=== PATIENT | male | born 1950 | race Caucasian/White ===

== ENCOUNTER 2021-05-12 16:35 | Inpatient (IN) | payer OTHER ==
[~2021-05-12] VITALS: Ht 175.3 cm; Wt 90.7 kg
[2021-05-12 17:58] LABS: Source, Urine Clean Catch
[2021-05-12 17:59] LABS: BASOPHILS ABSOLUTE AUTO 0.06 K/mm3 (0.00-0.23); BASOPHILS PERCENT AUTO 0 % (0-2); EOSINOPHILS ABSOLUTE AUTO 0.06 K/mm3 (0.00-0.68); EOSINOPHILS PERCENT AUTO 0 % (0-6); Hematocrit 38.2 % (37.0-53.0); Hemoglobin 13.9 g/dL (13.5-17.5); IMMATURE GRAN ABSOLUTE AUTO 0.05 K/mm3 (0.00-0.10); IMMATURE GRAN PERCENT AUTO 0 % (0-1); LYMPHOCYTES ABSOLUTE AUTO 1.14 K/mm3 (0.84-5.20); LYMPHOCYTES PERCENT AUTO 8 % (21-46); MONOCYTES ABSOLUTE AUTO 0.75 K/mm3 (0.16-1.47); MONOCYTES PERCENT AUTO 5 % (4-13); Mean Corpuscular HGB 31.6 pg (26.0-34.0); Mean Corpuscular HGB Conc 36.4 g/dL (31.5-36.5); Mean Corpuscular Volume 87 fL (80-100); Mean Platelet Volume 8.6 fL (9.1-12.4); NEUTROPHILS ABSOLUTE AUTO 12.56 K/mm3 (1.96-9.15); NEUTROPHILS PERCENT AUTO 86 % (41-73); Platelet Count 336 K/mm3 (150-400); RDW Coefficient Variation 12.5 % (11.7-14.2); RDW Standard Deviation 39.9 fL (35.1-46.3); White Blood Cell Count 14.62 K/mm3 (4.00-11.30)
[2021-05-12 17:59] LABS: Appearance, Urine Clear (Clear); Bilirubin, Urine Neg (Neg); Blood, Urine 4+ (Neg); Color, Urine Yellow (P-Yellow); Glucose Qualitative, Urine Neg (Neg); Ketones, Urine 1+ (Neg); Leukocyte Esterase, Urine Neg (Neg); Nitrite, Urine Neg (Neg); Protein, Urine 2+ (Neg); Urobilinogen, Urine NORM (Normal)
[2021-05-12 18:12] LABS: Bacteria Few /hpf; Hyaline Casts 0-2 /lpf (0-2); Squamous Epithelial Cells Rare /hpf (Few)
[2021-05-12 18:15] LABS: U Amphetamine Screen Not Detected; U Barbituate Screen Not Detected; U Benzodiazapine Screen Not Detected; U Buprenorphine Screen Not Detected; U Cannabinoids Screen DETECTED; U Cocaine Screen Not Detected; U Methadone Screen Not Detected; U Methamphetamine Screen Not Detected; U Opiates Screen Not Detected; U Oxycodone Screen Not Detected; U Phencyclidine Screen Not Detected; U Propoxyphene Screen Not Detected
[2021-05-12 18:33] LABS: Ethanol (Alcohol), Blood, Med <3 mg/dL; Free Thyroxine 0.95 ng/dL (0.70-1.60); Salicylate 4.1 mg/dL (2.8-20.0)
[2021-05-12 18:46] LABS: Alanine Aminotransfer (ALT/SGP 33 U/L (12-78); Albumin, Blood 3.8 g/dL (3.4-5.0); Alk Phos 128 U/L (50-136); Anion Gap 9 mmol/L (6-16); Aspartate Aminotrans (AST/SGOT 35 U/L (12-37); Bilirubin, Total 0.6 mg/dL (0.1-1.0); Blood Urea Nitrogen 6 mg/dL (8-24); CO2, Blood 25 mmol/L (21-32); Calcium, Blood 8.8 mg/dL (8.5-10.1); Chloride, Blood 85 mmol/L (98-108); Creatinine, Blood 0.67 mg/dL (0.60-1.20); Globulin, Blood 3.8 g/dL (2.2-4.0); Glomerular Filtration Rate >60 (60-); Glucose, Blood 106 mg/dL (70-99); Potassium, Blood 4.5 mmol/L (3.5-5.5); Sodium, Blood 119 mmol/L (136-145); Total Protein, Blood 7.6 g/dL (6.4-8.2)
[2021-05-12 18:48] LABS: Acetaminophen, Random <2.0 ug/mL (10.0-30.0)
[2021-05-12] MEDS ORDERED: DULO30 PO (20:50)
[2021-05-12] MEDS ORDERED: CATAPRES0.1 MG PO (20:50)
[2021-05-12] MEDS ORDERED: TRAZ100 PO (20:51)
--- NOTE | 2021-05-13 00:07 | NUR ---
PATIENT IS A NEW ADMIT FROM THE ED. ARRIVED VIA W/C AND SBA TRANSFER TO BED. AXOX 3 ON ROOM AIR. DENIES CHEST PAIN, SOB, AND N/V. DENIES SUICIDAL IDEATION. REPORTS LAST DRINK OF BEER THIS AM AT 11:30. REPORTS DRINKS 16 X 16 OZ BUDWEISER DAILY X A FEW MONTHS. ANXIOUS ON ADMIT. SEIZURE PADS IN PLACE WITH HX OF ETOH SEIZURES. REPORTS DAILY CANNABIS USE, A JOINT/DAY. PATIENT ORIENTED TO ROOM AND CALL LIGHT SYSTEM. REPORTS LIVES WITH SON IN [place].
--- NOTE | 2021-05-13 00:15 | NUR ---
TELEMETRY PLACES AND TECH REPORTS NSR 79. NS STARTED INFUSING AT 125 mL/HR. CALL LIGHT IN REACH. URINAL AT BEDSIDE.
[2021-05-13 01:06] LABS: Anion Gap 6 mmol/L (6-16); Blood Urea Nitrogen 9 mg/dL (8-24); Bun/Creatinine Ratio 12.1 (12.0-20.0); CO2, Blood 29 mmol/L (21-32); Calcium, Blood 8.7 mg/dL (8.5-10.1); Chloride, Blood 90 mmol/L (98-108); Creatinine, Blood 0.74 mg/dL (0.60-1.20); Glomerular Filtration Rate >60 (60-); Glucose, Blood 99 mg/dL (70-99); Potassium, Blood 4.5 mmol/L (3.5-5.5); Sodium, Blood 125 mmol/L (136-145)
--- NOTE | 2021-05-13 01:44 | NUR ---
BANANA BAG INFUSING @ 125mL/HR. NS BAG HELD WHILE BANANA BAG INFUSING PER ORDER.
--- NOTE | 2021-05-13 03:40 | NUR ---
SHIFT SUMMARY PATIENT HAD NO ACUTE CHANGES OBSERVED. AXOX 3 AND INDEPENDENT IN ROOM. DENIES SUICIDAL IDEATION. DENIES CHEST PAIN, SOB, AND N/V. CIWA 4-5. PIV REMAINS INTACT. BANANA BAG INFUSING AT 125 mL/HR FOLLOWED BY NS @ 125mL/HR. CAFETERIA SUPERVISOR REPORTS NSR 79. VSS/AFEBRILE. SEIZURE PRECAUTIONS IN PLACE. ANXIOUS ON ADMIT WITH MILD HAND TREMORS AND PAROXYSMAL SWEATS. NO HALLUCINATIONS NOTED. ABLE TO SLEEP AFTER ADMIT. SODIUM IMPROVING FROM 119 TO 125. CALL LIGHT IN REACH. BED IN LOWEST POSITION. WILL CONTINUE TO MONITOR UNTIL DAY SHIFT NURSE ASSUMES CARE.
[2021-05-13 04:45] LABS: BASOPHILS ABSOLUTE AUTO 0.06 K/mm3 (0.00-0.23); BASOPHILS PERCENT AUTO 1 % (0-2); EOSINOPHILS ABSOLUTE AUTO 0.29 K/mm3 (0.00-0.68); EOSINOPHILS PERCENT AUTO 3 % (0-6); Hematocrit 36.3 % (37.0-53.0); IMMATURE GRAN ABSOLUTE AUTO 0.04 K/mm3 (0.00-0.10); IMMATURE GRAN PERCENT AUTO 0 % (0-1); LYMPHOCYTES ABSOLUTE AUTO 2.22 K/mm3 (0.84-5.20); LYMPHOCYTES PERCENT AUTO 19 % (21-46); MONOCYTES ABSOLUTE AUTO 0.97 K/mm3 (0.16-1.47); MONOCYTES PERCENT AUTO 8 % (4-13); Mean Corpuscular HGB 31.6 pg (26.0-34.0); Mean Corpuscular HGB Conc 35.8 g/dL (31.5-36.5); Mean Corpuscular Volume 88 fL (80-100); NEUTROPHILS ABSOLUTE AUTO 8.25 K/mm3 (1.96-9.15); NEUTROPHILS PERCENT AUTO 70 % (41-73); Platelet Count 320 K/mm3 (150-400); RDW Coefficient Variation 12.9 % (11.7-14.2); Red Blood Cell Count 4.11 M/mm3 (4.30-5.90); White Blood Cell Count 11.83 K/mm3 (4.00-11.30)
[2021-05-13 11:47] LABS: Anion Gap 6 mmol/L (6-16); Blood Urea Nitrogen 10 mg/dL (8-24); Bun/Creatinine Ratio 13.3 (12.0-20.0); CO2, Blood 26 mmol/L (21-32); Calcium, Blood 8.6 mg/dL (8.5-10.1); Chloride, Blood 94 mmol/L (98-108); Creatinine, Blood 0.75 mg/dL (0.60-1.20); Glomerular Filtration Rate >60 (60-); Glucose, Blood 124 mg/dL (70-99); Sodium, Blood 126 mmol/L (136-145)
--- NOTE | 2021-05-13 17:30 | NUR ---
PT AOX4 AND COOPERATIVE OF CARE. PT HAS BEEN DETOXING AND NEEDED TREATED PER EMAR X2. PT CAN CALL APPROPRIATELY, BUT SET BED ALARM OFF ONCE TODAY. PT IS MAINTAINING AT THIS TIME. DENIES PAIN, CALL LIGHT WITHIN REACH WILL CONTINUE TO MONITOR.
[2021-05-13 18:45] LABS: Anion Gap 5 mmol/L (6-16); Blood Urea Nitrogen 13 mg/dL (8-24); Bun/Creatinine Ratio 14.2 (12.0-20.0); CO2, Blood 26 mmol/L (21-32); Chloride, Blood 94 mmol/L (98-108); Creatinine, Blood 0.92 mg/dL (0.60-1.20); Glomerular Filtration Rate >60 (60-); Glucose, Blood 107 mg/dL (70-99); Potassium, Blood 4.1 mmol/L (3.5-5.5); Sodium, Blood 125 mmol/L (136-145)
--- NOTE | 2021-05-14 00:33 | NUR ---
PATIENT HAVING INCREASED AGITATION WITH ETOH WITHDRAWALS. IV ATIVAN 2MG GIVEN FOR CIWA SCORE OF 8. PATIENT BACK IN BED. CALL LIGHT IN REACH.
[2021-05-14 03:09] LABS: Anion Gap 7 mmol/L (6-16); Blood Urea Nitrogen 14 mg/dL (8-24); Bun/Creatinine Ratio 14.7 (12.0-20.0); CO2, Blood 25 mmol/L (21-32); Calcium, Blood 8.6 mg/dL (8.5-10.1); Chloride, Blood 97 mmol/L (98-108); Creatinine, Blood 0.95 mg/dL (0.60-1.20); Glomerular Filtration Rate >60 (60-); Glucose, Blood 102 mg/dL (70-99); Potassium, Blood 3.8 mmol/L (3.5-5.5); Sodium, Blood 129 mmol/L (136-145)
--- NOTE | 2021-05-14 03:32 | NUR ---
SHIFT SUMMARY PATIENT HAVING INCREASED AGITATION WITH ALCOHOL WITHDRAWALS. CIWA 8. PATIENT PULLING OFF GOWN AND TELEMETRY LEADS. YELLING AND SCREAMING AT TIMES SPILLING HIS URINAL MULTIPLE TIMES. IV ATIVAN 2 MG GIVEN PER EMAR WITH GOOD AFFECT. PIV REMAINS INTACT. NS INFUSING AT 75 mL/HR. VSS/AFEBRILE. DENIES PAIN, SOB, AND N/V. CALL LIGHT IN REACH. BED IN LOWEST POSITION AND ALARM ACTIVED. IMPULSIVE. WILL CONTINUE TO MONITOR UNTIL DAY SHIFT NURSE ASSUMES CARE.
--- NOTE | 2021-05-14 18:50 | NUR ---
PT IS ALERT AND ORIENTED X 3. HE HAS REPORTED SEVERE BACK PAIN ALL DAY. HE REPORTS HIS BACK PAIN STARTED AFTER HE WAS ADMITTED INTO THE HOSPITAL. HE WAS ADMINISTERED TORADOL THIS AM. HE STATED TORADOL DID NOT RELIEVE HIS PAIN. ORDERED FENTANYL 50 MCG AND IT WAS GIVEN AT 1415. AT APPROX 1600, HE REPORTED FENTANYL DID NOT HELP MUCH AND HE WAS AGAIN IN SEVERE PAIN 10/. HE STATED HE COULD NOT WAIT FOR NEXT DOSE. WAS NOTIFIED AND FLEXERIL WAS ORDERED AND ADMINISTERED. HE APPEARS TO BE RESTING COMFORTABLE AT THIS TIME. XRAY OF BACK WAS COMPLETED.
--- NOTE | 2021-05-15 04:29 | NUR ---
SUMMARY PT AGITATED AND ANXIOUS AT BEGINING OF SHIFT PT CIWA WAS NOTED TO BE >8. PT MEDICATED PER EMAR. PT RESPONDED WELL AND WAS ABLE TO RELAX AND SLEEP. PT IS IMPULSIVE AT TIMES AND HAD TO BE EDUCATED ABOUT STANDING ON HIS FOOT. PT CURRENTLY SLEEPING AND IN NO DISTRESS. CALL LIGHT IN REACH AND BED ALARM ON.
[2021-05-15 05:33] LABS: Magnesium, Blood 1.7 mg/dL (1.6-2.4)
[2021-05-15 05:34] LABS: Albumin, Blood 2.9 g/dL (3.4-5.0); Anion Gap 6 mmol/L (6-16); Blood Urea Nitrogen 12 mg/dL (8-24); CO2, Blood 27 mmol/L (21-32); Calcium, Blood 8.8 mg/dL (8.5-10.1); Chloride, Blood 96 mmol/L (98-108); Glomerular Filtration Rate >60 (60-); Glucose, Blood 102 mg/dL (70-99); Phosphorus, Blood 3.7 mg/dL (2.5-4.9); Potassium, Blood 3.9 mmol/L (3.5-5.5); Sodium, Blood 129 mmol/L (136-145)
--- NOTE | 2021-05-15 18:47 | NUR ---
PT IS ALERT AND ORIENTED X 4. REPORTS OF BACK PAIN. HE WAS MEDICATED X 1 WITH ULTRAM. CIWA - 4. HE APPEARS TO HAVE BEEN RESTING COMFORTABLY MOST OF THE DAY. IVF DISCONTINUED. HE IS OOB WITH STANDBY ASSIST. NO SEIXURE ACTIVITY NOTED. HE IS VERY PLEASANT AND DENIES FEELINGS OF AGITATION OR ANXIETY AT THIS TIME. HE IS IN BED AND WATCHING TV. HE HAD AN UNEVENTFUL DAY.
--- NOTE | 2021-05-16 03:15 | NUR ---
SHIFT SUMMARY NO ACUTE CHANGES TO REPORT THIS SHIFT. PT HAS RESTED T/O SHIFT. CIWA IS BELOW 8. PT MEDICATED FOR LEFT FOOT PAIN. VITALS ARE STABLE, HE HAS DENIED NEEDS T/O SHIFT. BED IN LOWEST POSITION, CALL LIGHT WITHIN REACH.
--- NOTE | 2021-05-16 18:43 | NUR ---
PT IS ALERT AND ORIENTED X 4. HE C/O ACHING BACK PAIN X 3. HE WAS MEDICATED WITH TRAMADOL AND FLEXERIL WHICH PROVIDED SOME RELIEF. HE REPORTS BACK PAIN IS AGGRAVATED WHEN HE SITS UP AND/OR GET OOB. PT NOTED STRAINING BACK WHEN RISING FROM LYING FLAT TO SIT UP OR GET OOB. PT WAS ENCOURAGED TO USE BED TO RAISE WHEN HE WANTS TO SIT UP. HE AGREED. HE ALSO REPORTS INCREASE IN BACK PAIN WHEN HE STRAIN TO USE THE BATHROOM. HE REPORTS LAST BM ON DAY OF ADMISSION. HIS ABD IS SEMI-FIRM. HE HAS A GOOD APPETITE AND DRINKS COFFEE WHICH HE SAYS HELPS PROMOTE BM. HE IS VOIDING WITHOUT DIFFICULTY. HE IS OOB WITH FRONT WHEEL WALKER. HE APPEARS TO BE RESTING COMFORTABLY IN BED AND WATCHING TV.
--- NOTE | 2021-05-17 04:29 | NUR ---
VITAL SIGNS STABLE. COMPLAIN OF PAIN X1 DURING SHIFT. PAIN MEDICATION GIVEN. NO NEW ISSUES IDENTIFIED. BED LOCKED IN LOW POSITION, CALL LIGHT IN REACH. WILL CONTINUE TO MONITOR UNTIL REPORT IS GIVEN TO DAY NURSE.
[2021-05-17 06:18] LABS: Anion Gap 7 mmol/L (6-16); Blood Urea Nitrogen 18 mg/dL (8-24); Bun/Creatinine Ratio 20.1 (12.0-20.0); CO2, Blood 25 mmol/L (21-32); Calcium, Blood 9.5 mg/dL (8.5-10.1); Chloride, Blood 98 mmol/L (98-108); Glomerular Filtration Rate >60 (60-); Glucose, Blood 110 mg/dL (70-99); Potassium, Blood 4.2 mmol/L (3.5-5.5); Sodium, Blood 130 mmol/L (136-145)
--- NOTE | 2021-05-17 10:49 | NUR ---
CONTACTED DR. NELI MALONE' OFFICE REGARDING FOLLOW-UP PLAN FOR WALKING CASTING BOOT INSTRUCTED PER DR. MARX. MEDICAL OFFICE STAFF WILL CONTACT DR. MALONE. MEDICAL FLOOR CONTACT NUMBER [phone] WAS PROVIDED TO CALL WITH UPDATE.
--- NOTE | 2021-05-17 14:18 | NUR ---
RECEIVED CALL FROM DR. MALONE' OFFICE. PER OFFICE STAFF - DR. MALONE STATED SHOULD BE ABLE TO FIT BOOT AT [facility] IF NOT, PT MAY USE A POST OP SHOE. DISCUSS WITH CHARGE NURSE AND NOTIFIED DR. MARX. PT STATED HE WORE SIZE 10 SHOE. PT STATED LARGE SHOE WASN'T GOOD FIT. MEDIUM SIZE POST OP SHOE WAS FIT.
--- NOTE | 2021-05-18 05:59 | NUR ---
SHIFT SUMMARY: NO ACUTE CHANGES OR CONCERNS. MEDICATED FOR PAIN BEFORE BEDTIME AND GAVE HEATING PAD. HE FELL ASLEEP SHORTLY AFTERWARDS FOR THE ENTIRE NIGHT. VS WNL. WILL CONTINUE TO MONITOR. CALL LIGHT IS IN REACH.
[2021-05-18] MEDS ORDERED: CYCL10 PO (15:45)
[2021-05-18] MEDS ORDERED: AMLO5 (15:46)
[2021-05-18] MEDS ORDERED: TRAM50 (15:46)
== END 2021-05-18 17:52 | disposition home health service (06) | DRG 641 ==
LOC: ER 16:35 → MEDS 21:00
PROVIDERS: Emergency Medicine; Internal Medicine; ADMIT Internal Medicine
PROC: HZ2ZZZZ Detoxification Services for Substance Abuse Treatment (ICD-10-PCS; principal; 2021-05-13)
DX: E87.1 Hypo-osmolality and hyponatremia (principal); R45.851 Suicidal ideations; F10.239 Alcohol dependence with withdrawal, unspecified; I10 Essential (primary) hypertension; F41.9 Anxiety disorder, unspecified; F43.10 Post-traumatic stress disorder, unspecified; F10.10 Alcohol abuse, uncomplicated; S92.325A Nondisplaced fracture of second metatarsal bone, left foot, initial encounter for closed fracture; S92.335A Nondisplaced fracture of third metatarsal bone, left foot, initial encounter for closed fracture; S92.345A Nondisplaced fracture of fourth metatarsal bone, left foot, initial encounter for closed fracture; F32.A Depression, unspecified; F17.210 Nicotine dependence, cigarettes, uncomplicated; M54.50 Low back pain, unspecified; E87.8 Other disorders of electrolyte and fluid balance, not elsewhere classified; Z79.899 Other long term (current) drug therapy; W18.39XA Other fall on same level, initial encounter
CPT/HCPCS: 36415; 71045; 72110; 73620; 80048; 80053; 80069; 81001; 83735; 83930; 83935; 84295; 84439; 84443; 85025; 97110; 97116; 97162; 97166; 99285; A9270; G0480; J0360; J1650; J1885; J2060; J3010; J3411; J3475; J7030

== ENCOUNTER 2021-09-26 13:56 | Inpatient (IN) | payer OTHER ==
[~2021-09-26] VITALS: Ht 177.8 cm; Wt 69.3 kg
[~2021-09-26 13:56] MED LIST: AMLO5; CATAPRES0.1 MG PO; CYCL10 PO; DULO30 PO; IBUP800 PO; Robaxin750 MG PO; TRAM50; TRAZ100 PO; Voltaren100 GM TOP
[2021-09-26] MEDS ORDERED: OXYC5 (14:27)
[2021-09-26 15:41] LABS: BASOPHILS ABSOLUTE AUTO 0.07 K/mm3 (0.00-0.23); BASOPHILS PERCENT AUTO 1 % (0-2); EOSINOPHILS ABSOLUTE AUTO 0.05 K/mm3 (0.00-0.68); EOSINOPHILS PERCENT AUTO 1 % (0-6); Hematocrit 31.2 % (37.0-53.0); Hemoglobin 10.4 g/dL (13.5-17.5); IMMATURE GRAN ABSOLUTE AUTO 0.12 K/mm3 (0.00-0.10); IMMATURE GRAN PERCENT AUTO 1 % (0-1); LYMPHOCYTES ABSOLUTE AUTO 1.17 K/mm3 (0.84-5.20); LYMPHOCYTES PERCENT AUTO 11 % (21-46); MONOCYTES ABSOLUTE AUTO 0.98 K/mm3 (0.16-1.47); MONOCYTES PERCENT AUTO 9 % (4-13); Mean Corpuscular HGB 29.1 pg (26.0-34.0); Mean Corpuscular HGB Conc 33.3 g/dL (31.5-36.5); Mean Corpuscular Volume 87 fL (80-100); Mean Platelet Volume 9.7 fL (9.1-12.4); NEUTROPHILS ABSOLUTE AUTO 8.22 K/mm3 (1.96-9.15); NEUTROPHILS PERCENT AUTO 78 % (41-73); Platelet Count 405 K/mm3 (150-400); RDW Coefficient Variation 17.7 % (11.7-14.2); RDW Standard Deviation 56.2 fL (35.1-46.3); Red Blood Cell Count 3.57 M/mm3 (4.30-5.90); White Blood Cell Count 10.61 K/mm3 (4.00-11.30)
[2021-09-26 16:00] LABS: Alanine Aminotransfer (ALT/SGP 34 U/L (12-78); Albumin, Blood 1.5 g/dL (3.4-5.0); Albumin/Globulin Ratio 0.3 (0.8-1.8); Alk Phos 304 U/L (50-136); Anion Gap 8 mmol/L (6-16); Aspartate Aminotrans (AST/SGOT 55 U/L (12-37); Bilirubin, Total 0.8 mg/dL (0.1-1.0); Blood Urea Nitrogen 12 mg/dL (8-24); Bun/Creatinine Ratio 26.3 (12.0-20.0); CO2, Blood 23 mmol/L (21-32); CPK Creatine Kinase 59 U/L (39-308); Calcium, Blood 7.7 mg/dL (8.5-10.1); Chloride, Blood 90 mmol/L (98-108); Creatinine, Blood 0.46 mg/dL (0.60-1.20); Glomerular Filtration Rate >60 (60-); Glucose, Blood 112 mg/dL (70-99); Phosphorus, Blood 3.4 mg/dL (2.5-4.9); Potassium, Blood 5.5 mmol/L (3.5-5.5); Sodium, Blood 121 mmol/L (136-145); Total Protein, Blood 6.5 g/dL (6.4-8.2); Uric Acid, Blood 3.4 mg/dL (3.5-7.2)
[2021-09-26 16:55] LABS: Influenza A, PCR NEGATIVE (NEGATIVE); Influenza B, PCR NEGATIVE (NEGATIVE); Resp Syncytial Virus, PCR NEGATIVE (NEGATIVE); SARS-Cov-2 (COVID-19) PCR, MMC NEGATIVE (NEGATIVE)
[2021-09-26 18:26] LABS: Source, Urine Clean Catch
[2021-09-26 18:29] LABS: Bilirubin, Urine Neg (Neg); Blood, Urine Neg (Neg); Glucose Qualitative, Urine Neg (Neg); Ketones, Urine Neg (Neg); Leukocyte Esterase, Urine 1+ (Neg); Nitrite, Urine Neg (Neg); Protein, Urine Neg (Neg); Urobilinogen, Urine 2+ (Normal); pH, Urine 6.5 (5.0-8.0)
[2021-09-26 18:44] LABS: Appearance, Urine Clear (Clear); Color, Urine Amber (P-Yellow)
[2021-09-26 18:45] LABS: Bacteria Rare /hpf; Red Blood Cells, Urine 0-2 /hpf (0-2); Squamous Epithelial Cells Rare /hpf (Few); Yeast/Fungi Urine Rare /hpf
[2021-09-26 22:23] LABS: Anion Gap 8 mmol/L (6-16); Blood Urea Nitrogen 9 mg/dL (8-24); Bun/Creatinine Ratio 22.8 (12.0-20.0); CO2, Blood 25 mmol/L (21-32); Calcium, Blood 7.9 mg/dL (8.5-10.1); Chloride, Blood 93 mmol/L (98-108); Creatinine, Blood 0.39 mg/dL (0.60-1.20); Glomerular Filtration Rate >60 (60-); Glucose, Blood 146 mg/dL (70-99); Potassium, Blood 4.5 mmol/L (3.5-5.5); Sodium, Blood 126 mmol/L (136-145)
--- NOTE | 2021-09-26 23:24 | NUR ---
PATIENT IS A NEW ADMIT FROM THE ED. THREE PERSON TRANSFER FROM [facility] TO BED. AXO 3 WITH CONFUSION AND SLOW TO RESPOND. IV ALBUMIN INFUSING FROM THE ED. ON ROOM AIR. DENIES CHEST PAIN, SOB, AND N/V. 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 KNEE/LEG PAIN AND OXYCODONE 5 M GIVEN PER EMAR. TELEMETRY PLACED AND TECH REPORTS A-FIB 103. ORIENTED TO ROOM AND CALL LIGHT SYSTEM. REPORTS WANTS TO SLEEP AFTER ASSESSMENT. NS STARTED AT 100mL/HR. CALL LIGHT IN REACH.
--- NOTE | 2021-09-27 03:24 | NUR ---
SHIFT SUMMARY PATIENT HAD NO ACUTE CHANGES OBSERVED. AXOX 2-3 WITH CONFUSION AND SELF TALK WITH EYES CLOSED. BEDREST USING URINAL AT BEDSIDE. PIV REMAINS INTACT. NS INFUSING AT 100mL/HR. MEDICAL DETAILIST REPORTS A-FIB 103. REPORTS STAGE IV BONE CANCER WITH PAIN TO KNEES AND LEGS X TWO. OXYCODONE 5 MG GIVEN PER EMAR. VSS/AFEBRILE. DENIES CHEST PAIN, SOB, AND N/V. CALL LIGHT IN REACH. BED IN LOWEST POSITION. WILL CONTINUE TO MONITOR UNTIL DAY SHIFT NURSE ASSUMES CARE.
[2021-09-27 05:02] LABS: International Normalized Ratio 1.14; Prothrombin Time Results 11.9 Sec (9.7-11.5)
[2021-09-27 05:21] LABS: Alanine Aminotransfer (ALT/SGP 28 U/L (12-78); Albumin, Blood 2.1 g/dL (3.4-5.0); Albumin/Globulin Ratio 0.5 (0.8-1.8); Alk Phos 234 U/L (50-136); Anion Gap 9 mmol/L (6-16); Aspartate Aminotrans (AST/SGOT 31 U/L (12-37); Bilirubin, Total 0.9 mg/dL (0.1-1.0); Blood Urea Nitrogen 7 mg/dL (8-24); Bun/Creatinine Ratio 17.1 (12.0-20.0); CO2, Blood 23 mmol/L (21-32); Calcium, Blood 7.9 mg/dL (8.5-10.1); Chloride, Blood 95 mmol/L (98-108); Creatinine, Blood 0.41 mg/dL (0.60-1.20); Glomerular Filtration Rate >60 (60-); Glucose, Blood 104 mg/dL (70-99); Potassium, Blood 4.3 mmol/L (3.5-5.5); Sodium, Blood 127 mmol/L (136-145); Total Protein, Blood 6.1 g/dL (6.4-8.2)
[2021-09-27 13:03] LABS: Automated BF WBC Count >200.000 K/mm3 (0-999)
[2021-09-27 13:04] LABS: Automated BF RBC Count 0.227 M/mm3 (0-0); RBC Count, Body Fluid 227000 /mm3 (0-0)
[2021-09-27 13:48] LABS: Total Cell Count, Body Fluid 100
[2021-09-27 13:49] LABS: Appearance, Body Fluid Cloudy (Clear); Color, Body Fluid Yellow (None-Yellow); Glucose, Body Fluid 6 mg/dL; Protein, Body Fluid 2.1 g/dL
--- NOTE | 2021-09-27 16:05 | NUR ---
Visited with Seferino this afternoon. He states he is hurting on his lower right side. Unable to give a number on the pain scale. He just received some PO pain medication about 30 minutes prior to this travel writer's arrival. He was started on a fentanyl pain patch earlier today in addition to oxycodone 10 mg PO. He has had several new pain medications added today and will need to have some time to see how he responds to the new medication. He states he was living in [place] with his son, however his son isn't able to care for him. He states he is upset with his son right now and doesn't want him involved in making any decisions at this time. He states he is wanting some help with caregiving needs. He is a . He had a thoracentesis completed earlier today. One liter of fluid was removed and was sent to the lab for culture. Pt reports he is unsure if he wants to continue his treatments for lung cancer or if he would like to pursue being comfortable. Plan to pursue a discussion of his goals of care when he isn't in so much pain. Will give the medications some time to work. He may benefit from the addition of dexamethasone for his lung cancer with bone met pain. Spent time in therapeutic communication with Seferino this afternoon. Called Dr. Rodriguez's office and spoke with Fang to notify them that Seferino is currently hospitalized. Updated bedside nursing. PC to plan to meet with Seferino tomorrow for symptom managment and advanced care planning as needed. Seferino instructed to contact nursing if his pain doesn't improve with the medications that are currently ordere. He verbalized understanding.
--- NOTE | 2021-09-27 18:21 | NUR ---
PT IS A/OX3, SOME MILD CONFUSION AT TIMES. PT APPEARS TO BE BREATHING EASILY ON RA AT THIS TIME. THE PT IS IRRIATABLE AT TIMES. THE PT WAS MEDICATED FOR PAIN T/O THE DAY. PT WAS MEDICATED FOR NAUSEA TIMES ONE. THE PT REPORTS THAT HE DOES NOT WISH TO GO BACK HOME AT DISCHARGE AND WOULD LIKE TO GO TO A SNF. THE PATTERNMAKER APPRENTICE WOOD HAS BEEN WORKING WITH THE PT. PALLIATIVE CARE CONSULTED ON THE PT, CALL LIGHT IS WITHIN REACH. WILL CONTINUE TO MONITOR AND ASSESS FOR CHANGES
[2021-09-28 05:47] LABS: Hemoglobin 8.5 g/dL (13.5-17.5); Mean Corpuscular HGB 29.1 pg (26.0-34.0); Mean Corpuscular HGB Conc 32.7 g/dL (31.5-36.5); Mean Corpuscular Volume 89 fL (80-100); Platelet Count 323 K/mm3 (150-400); RDW Coefficient Variation 17.7 % (11.7-14.2); RDW Standard Deviation 57.4 fL (35.1-46.3); Red Blood Cell Count 2.92 M/mm3 (4.30-5.90); White Blood Cell Count 4.46 K/mm3 (4.00-11.30)
[2021-09-28 06:02] LABS: Alanine Aminotransfer (ALT/SGP 30 U/L (12-78); Albumin, Blood 1.8 g/dL (3.4-5.0); Albumin/Globulin Ratio 0.5 (0.8-1.8); Alk Phos 208 U/L (50-136); Anion Gap 6 mmol/L (6-16); Aspartate Aminotrans (AST/SGOT 26 U/L (12-37); Bilirubin, Total 0.6 mg/dL (0.1-1.0); Blood Urea Nitrogen 6 mg/dL (8-24); Bun/Creatinine Ratio 16.7 (12.0-20.0); CO2, Blood 25 mmol/L (21-32); Calcium, Blood 7.9 mg/dL (8.5-10.1); Chloride, Blood 97 mmol/L (98-108); Creatinine, Blood 0.36 mg/dL (0.60-1.20); Globulin, Blood 3.9 g/dL (2.2-4.0); Glomerular Filtration Rate >60 (60-); Glucose, Blood 110 mg/dL (70-99); Potassium, Blood 4.3 mmol/L (3.5-5.5); Sodium, Blood 128 mmol/L (136-145); Total Protein, Blood 5.7 g/dL (6.4-8.2)
--- NOTE | 2021-09-28 06:39 | NUR ---
SHIFT SUMMARY Pt reporting severe pain to BLE's and R side, med per mar and pt reported some relief with meds. Pt slept soundly for several hours but had difficulty sleeping at times. Lungs diminished, sarina room air, voiding without difficulty. VSS, small pink area noted to L buttocks, mepilex drsg applied, pt repositioned for comfort. Pt a/o x4 but did wake up several times disoriented as to where he was. Afebrile, abx's per mar, IVF infusing as ordered. Sodium improved to 128 this am. Anticipate palliative care consult today to determine goals of care.
--- NOTE | 2021-09-28 13:44 | NUR ---
Spoke with Primary RN Manolo and discussed case. Pt still requiring breakthrough pain medication on a frquent basis. Pt resting in bed and reports 9/10 pain in his legs. Pt appears mildly anxious due to pain. Will attempt therapeutic visits at a later time when pain is better managed. Spoke with Dr Beavers and discussed case. Dr Beavers will consider increased Fentanyl patch and consider dexamethasone for pain. Palliative Care will remain available
--- NOTE | 2021-09-28 18:41 | NUR ---
PT IS A/OX4, COOPERATIVE UP WITH ASSIST USEING THE FWW. THE PT TODAY WAS UP WITH THE PHYSICAL THERAPIST TO THE CHAIR, HOWEVER WAS UNABLE TO TOLERATE IT FOR VERY LONG. THE PT WAS MEDICATED FOR PAIN T/O THE DAY WITH LITTLE EFFECT. DR. MCKEON ORDERED TORADOL AND INCREASED THE PTS FENTANYL PATCH. AFTER ADMINISTERED THE PT WAS ABLE TO GET UP TO THE CHAIR FOR DINNER AND TOLERATED IT WELL. THE PT APPEARS TO BE BREATHING EASILY ON RA AT THIS TIME. CALL LIGHT IN REACH. WILL CONTINUE TO MONITOR AND ASSESS FOR CHANGES
[2021-09-29 05:44] LABS: Hematocrit 26.2 % (37.0-53.0); Hemoglobin 8.3 g/dL (13.5-17.5); Mean Corpuscular HGB 28.8 pg (26.0-34.0); Mean Corpuscular HGB Conc 31.7 g/dL (31.5-36.5); Mean Corpuscular Volume 91 fL (80-100); Mean Platelet Volume 9.4 fL (9.1-12.4); Platelet Count 279 K/mm3 (150-400); RDW Standard Deviation 59.6 fL (35.1-46.3); Red Blood Cell Count 2.88 M/mm3 (4.30-5.90)
[2021-09-29 06:10] LABS: Alanine Aminotransfer (ALT/SGP 33 U/L (12-78); Albumin, Blood 1.6 g/dL (3.4-5.0); Albumin/Globulin Ratio 0.4 (0.8-1.8); Alk Phos 187 U/L (50-136); Anion Gap 8 mmol/L (6-16); Aspartate Aminotrans (AST/SGOT 23 U/L (12-37); Bilirubin, Total 0.4 mg/dL (0.1-1.0); Blood Urea Nitrogen 8 mg/dL (8-24); CO2, Blood 23 mmol/L (21-32); Calcium, Blood 7.8 mg/dL (8.5-10.1); Chloride, Blood 99 mmol/L (98-108); Creatinine, Blood 0.42 mg/dL (0.60-1.20); Ferritin, Serum 433 ng/mL (26-388); Globulin, Blood 3.7 g/dL (2.2-4.0); Glomerular Filtration Rate >60 (60-); Glucose, Blood 159 mg/dL (70-99); Iron Serum 28 ug/dL (65-175); Percent Saturation 19.6 % (20.0-50.0); Sodium, Blood 130 mmol/L (136-145); Total Iron Binding Capacity 143 ug/dL (250-450); Total Protein, Blood 5.3 g/dL (6.4-8.2)
--- NOTE | 2021-09-29 07:34 | NUR ---
SHIFT SUMMARY PT A/OX3 WITH CONFUSION AT TIMES , C/O SEVERE PAIN SEVERAL TIMES THIS SHIFT AND WAS MEDICATED PER EMAR, AFIB ON TELEMETRY WITH HR IN THE 70'S, KENAN HOSE APPLIED BUT PT REMOVED THEM AT 0500 THIS AM,THORACENTESIS SITE WNL WITH BANDAID REMOVED. NO ACUTE DISTRESS NOTED.
--- NOTE | 2021-09-29 09:41 | NUR ---
Supportive visit this AM. Pt reports 7/10 pain at this time. He does report significant improvement with current pain regimen. Pt reports that therapy is planning another session this AM. Pt reports motivation to get stronger. Pt expresses appreciation and reports no other concerns at this time. Palliative Care will remain available.
--- NOTE | 2021-09-29 16:56 | NUR ---
PT IS A/OX4, PLEASANT AND COOPERATIVE. THE PT IS UP TO THE CHAIR WITH MINIMAL ASSIST. THE PT APPEARS TO BE BREATHING EASILY ON RA AT THIS TIME. THE PT CONTINUES TO BE UNCOMFORTABLE PAIN CONTROL HAS SOMEWHAT IMPROVED. PT REPORTS STILL HAVING PAIN EVEN AFTER BEING MEDICATED. PTS SON WAS IN TO VISIT, THE PT HAS BEEN UP INTO THE CHAIR FOR MEALS AND HAS BEEN WORKING WITH THE PHYSICAL THERAPIST. CALL LIGHT IN REACH. WILL CONTINUE TO MONITOR AND ASSESS FOR CHANGES
--- NOTE | 2021-09-30 04:54 | NUR ---
SHIFT SUMMARY PT A/O X4 THIS SHIFT, TELEMETRY INTACT AND IN AFIB WITH HR IN THE 80'S PER MILLWRIGHT INSTRUCTOR,CONTINUES TO C/O SEVERE PAIN "ALL OVER" AND BACK PAIN AND MEDICATED PER EMAR, GENERALIZED WEAKNESS NOTED, NO DISTRESS THIS AM AND APPEARS TO BE RESTING AT THIS TIME.
--- NOTE | 2021-09-30 12:16 | NUR ---
PATIENT WAS BEHIND ON PAIN REGIMINE AND WAS HAVING DIFFICULTY WITH PAIN. PATIENT AND NURSE WORKED TOGETHER TO TRY TO GIVE ORAL MEDS NEEDED MORE ON A FREQUENT SCHEDULED BAISIS AND TO LET RN KNOW IF IV PAIN MEDICATION IS NEEDED FOR BREAKTHROUGH. PATIENTS PAIN HAS BEEN MORE BEARABLE. PATIENT IS A AND O 4X.
--- NOTE | 2021-09-30 17:03 | NUR ---
Summary of three separate visits t/o the day and Case conferences with pt's RN, Dr Beavers and Dr Rodriguez - Early am visit, pt in significant reported and observed pain, grimacing writhing and nearly crying with pain. Discussed medications available prn with his RN and noted lack of regular analgesics t/o the night. Pt had increased duragesic patch dosing 24 hours prior. Second visit Pt continues to report 8/10 pain despite utilization of both dilauded IV and oxycodone 10 mg prn regularly per eMar. t/c to Dr with new orders to d/c IV dilaudid, increase duragesic patch to 75mg and start Roxanol 5-20 mg PO q2hrs prn breakthru pain. Pt was also started on dexamethasone today with first dose scheduled at 5pm. During my second visit, pt appears distressed emotionally and had many questions about "what is going on", referring to the status of his cancer, treatment, plans, prognosis etc. I reviewed as much as is available in regard to his current admission with him. With his permission and request, I contacted [facility] and Dr Rodriguez returned my call. With Dr Rodriguez's ok, I reviewed that conversation with the pt. Pt states he was unaware that he had bone mets or that his cancer was not curable. We discussed curative tx vs palliative tx and the hope of tx reducing his pain and improving quality of life. I explained that his most recent studies did not show new areas but were unchanged. I shared that he will be more susceptible to infections like his current pneumonia due to both the lung cancer, fluid in his lungs and the treatment suppressing his immune system. Pt states he lives with his son but that there is not a lot of help there and he is no longer independent. Pt is a . I discussed the option of cont to seek tx for palliative effects if he becomes well/strong enough. stated that was something they could talk about after he recovers from this acute illness. I discussed the option of hospice and focusing on the goal of comfort, including possible placement where he can receive the care he needs as he said several times he is not getting the care and is unable to do the self care needed at home. I briefly reviewed that [facility] may [facility] , either for their hosp[facility] unit or a source of funds for a hospice placement if needed. Pt wants to return home on d/c but is also realistic that home is not going to be possible for much longer as his situation worsens. Pt appears to have a very low medical understanding and literacy. He's asked for direct/honest information even if it is bad. I understand from Dr Rodriguez that his prognosis, incurable status was discussed with both pt and his son in the office at the same time but pt either did not understand or has some denial in place. Plan to request CM be involved in assisting pt/son with options for added support on d/c. I did not speak with son today by phone and found no visitors present during any of my visits. On my last visit this sandy, pt appeared much more comfortable than on previous visits. He is appropriately sad and grieving due to the hard topic of our conversation. Discussed all of above with pt's RN and strategy to pass on to cordwood cutter helper for better pain management to avoid out of control pain tomorrow am again.
[2021-09-30 17:24] LABS: Creatinine, Blood 0.46 mg/dL (0.60-1.20); Vancomycin, Trough 12.1 ug/mL (5.0-10.0)
[2021-10-01 06:22] LABS: Hematocrit 24.7 % (37.0-53.0); Hemoglobin 7.9 g/dL (13.5-17.5); Mean Corpuscular HGB 28.8 pg (26.0-34.0); Mean Corpuscular Volume 90 fL (80-100); Mean Platelet Volume 9.2 fL (9.1-12.4); Platelet Count 288 K/mm3 (150-400); RDW Coefficient Variation 18.9 % (11.7-14.2); Red Blood Cell Count 2.74 M/mm3 (4.30-5.90); White Blood Cell Count 3.77 K/mm3 (4.00-11.30)
[2021-10-01 06:43] LABS: Alanine Aminotransfer (ALT/SGP 39 U/L (12-78); Albumin, Blood 1.7 g/dL (3.4-5.0); Albumin/Globulin Ratio 0.4 (0.8-1.8); Alk Phos 239 U/L (50-136); Anion Gap 5 mmol/L (6-16); Aspartate Aminotrans (AST/SGOT 34 U/L (12-37); Bilirubin, Total 0.5 mg/dL (0.1-1.0); Blood Urea Nitrogen 6 mg/dL (8-24); Bun/Creatinine Ratio 16.1 (12.0-20.0); CO2, Blood 29 mmol/L (21-32); Calcium, Blood 8.1 mg/dL (8.5-10.1); Chloride, Blood 98 mmol/L (98-108); Creatinine, Blood 0.37 mg/dL (0.60-1.20); Globulin, Blood 4.2 g/dL (2.2-4.0); Glomerular Filtration Rate >60 (60-); Glucose, Blood 154 mg/dL (70-99); Potassium, Blood 4.3 mmol/L (3.5-5.5); Sodium, Blood 132 mmol/L (136-145); Total Protein, Blood 5.9 g/dL (6.4-8.2)
--- NOTE | 2021-10-01 07:38 | NUR ---
SHIFT SUMMARY PT A/O X4, AFIB ON TELEMETRY WITH RATE CONTROLLED, LUNGS CTA AND ON RA, MEDICATED SEVERAL TIMES FOR BACK PAIN AND MEDS WERE EFFECTIVE, NO BM THIS SHIFT AND RECEIVING RN MADE AWARE, PT RESTED BETTER TONIGHT THAN THE LAST TWO NIGHTS. NO ACUTE DISTRESS NOTED.
--- NOTE | 2021-10-01 09:50 | NUR ---
[facility] care visit and Case conf with DR KIMBERLY, RN F/U visit. EMR reviewed prior. Pt is markedly demonstrating less nonverbal painful behaviors upon entering the room. He is reporting that Roxanol has been helpful in managing pain t/o the night. He last had some between 3-4 am and reports moderate to severe pain currently. This was reported to his RN with request for prn dose of Roxanol per eMAR. He is still painful appearing but much improved since yesterday. He c/o cont constipation and is on a bowel regime currently. He is sl dyspnic with conversation. He appears less depressed and anxious but still appears unsettled. He states he slept/rested better but sleep was disturbed by worry, thoughts about information provided to him during my last visit. I acknowledged his suffering and the hard conversations and decisions he is faced with. He verbalized that it was information he needed to know and when I offered, asked if I would call and share with his son our conversation and the information obtained from Dr Rodriguez yesterday by phone. I reviewed options for goals/plans of care and pt would like to be placed somewhere where he can receive the higher level of care he is now needing. He is hoping for [place] facility and/or funding. We discussed hospice and EOL care vs. continued treatment, testing, intervention for acute issues. Pt states he does "not want to keep laying in bed suffering" and would prefer EOL care and to be kept comfortable. All of above relayed to KIMBERLY Dial, bedside RN. Attempt made to reach pt's son, Fer, twice. Once was cut off during ringing and was able to leave a VM on second try. Also requested that RN page me if son comes in to visit.
--- NOTE | 2021-10-01 10:53 | NUR ---
PATIENT'S PAIN IS CONTROLLED BETTER WITH INCREASE IN FENTANYL PATCH DOSE AND ROXINOL PRN SLIDING SCALE. PATIENT IS LESS IRRITABLE AND MORE AT EASE. PATIENT A AND O 4X AND CALLS FOR HELP/FOLLOWS COMMANDS.
--- NOTE | 2021-10-02 07:35 | NUR ---
BOX TOE MAKER SUMMARY ADMITTED FOR HYPONATREMIA. PT IS A DNR. HISTORY OF STAGE IV BONE CANCER WITH METS. PT MEDICATED MULTIPLE TIMES THROUGHOUT THE NIGHT WITH LITTLE PAIN RELIEF. PAIN "ALL OVER." HE IS ON ROOM AIR. AWAITING DISCHARGE ON HOSPICE BUT PT DOES NOT FEEL READY TO GO HOME.
--- NOTE | 2021-10-02 14:38 | NUR ---
[facility] Care visit this am. Pt reports pain at level of 8-9. skid strapper administered Roxanol as pt's RN discharging another pt at that time. Pt cont to express much anger toward son, some staff and his situation. Time spent listening and validating feelings. Pain managment strategy discussed with him and with his RN. He is still requiring some breakthru pain medication every 2-3 hours. Will discuss interventions with Dr if not improved tomorrow. Pt is in less pain than on and Monday mornings but still not getting satisfactory pain medication. Pt states he uses marijuanna but no other drugs and alcohol. Part of his anger towards son is r/t drug/substance abuse and son frequently asking how much $$ pt has. Pt reports his son has lost his own phone and pt's cell phone. That would explain why the son has not returned my call from left yesterday. RN to page me if the son comes in to visit. Pt reports he and his son "had it out" on and he has not been in to visit since then. Pt owns his own home and son has always lived with him for the most part, per pt. Pt is appreciative of visits but frequently gets very agitated and worked up when talking about anything personal. Would recommend strong ADMINISTRATIVE SERVICES COORDINATOR involvement in hospice plan of care after d/c to assist pt with estate planning and processing of grief/anger.
[2021-10-02 17:23] LABS: Vancomycin, Trough 14.8 ug/mL (5.0-10.0)
--- NOTE | 2021-10-02 18:06 | NUR ---
SHIFT SUMMARY PT A&O X4 AND IN PLEASENT MOOD T/O SHIFT. PT DID JOKE AROUND AND LAUGH W/ THIS RN, THOUGH HAS A FLAT AFFECT @ TIMES. PT VERY PAINFUL T/O SHIFT, MEDICATED PER EMAR AND REPOSITIONED- PLAN TO CONTACT DR. KAUR. TELE DC'ED THIS SHIFT PER ORDERS. SON CONTACTED PER PT REQUEST, SON ON HIS WAY TO VISIT @ THIS TIME. PT C/O [facility] SOFT DIET, PLAN TO LOOK INTO. VSS. CALL LIGHT W/IN REACH.
--- NOTE | 2021-10-03 07:21 | NUR ---
SHIFT SUMMARY PT IS A 70 Y/O MALE, ADMITTED FOR HYPONATREMIA. A&O X 4, BEDREST. PT C/O SEVERE PAIN THROUGH THE NIGHT, AND WAS MEDICATED WITH PRN ROXANOL Q1H. NO C/O NAUSEA OR SOB. VITAL SIGNS STABLE. NO OTHER ACUTE CHANGES IN PT CONDITION NOTED DURING THE NIGHT. REPORT GIVEN TO ONCOMING ERICKSON.
--- NOTE | 2021-10-03 10:45 | NUR ---
PALITIVE CARE CHANGED PT STATUS TO COMFORT CARE, IN TO VISIT PT @ THIS TIME
--- NOTE | 2021-10-03 10:50 | NUR ---
SUMMARY of visits and case conferences with Dr, director of vendor management, bedside RN this am. Pt was just waking on my first visit. Roxanol is being administered q1-2 hours due to signficant reported and observed pain t/o the night. Discussed with Dr, nursing and pt. Plan formulated, orders obtained and entered for comfort care, increase of duragesic patch to 100mcg (due to be changed today) and addition of ativan for potentiating analgesics and treating pt's anxiety. He is expressing the need to get out of his room. His brother will be visiting today and he would like to get in a wheelchair and go around the hallways to look out different area windows. Pt appears restless but in fairly good humor and at times able to joke with me and his nurse. He was assisted with some personal care, washing his face, changing gown and soaking his partial dentures. They were left on the night supervisor drying and winding the soaking solution. Pt rates his pain at 8 just prior to administration of Roxanol and ativan per RN while I was visiting. Pt did not express extreme anger and frustration with his son today as he has on every previous visit. Son has asked permission to bring pt's dog in to visit and was told that he could. I will try to reach son by phone today again. Pt in agreement with plan to transition to comfort care today and confirms being comfortable is his primary goal. "Things are getting serious now, aren't they?" I supported and affirmed pt's expressed feelings. Plan to continue daily visits for s/s management and support. Pt expressed being happy to have the same RN today that he had yesterday.
--- NOTE | 2021-10-03 14:02 | NUR ---
Unable to reach son by phone again today.
--- NOTE | 2021-10-03 16:30 | NUR ---
Son returned call. Updated him on his dad's current status, medications, plan for comfort care and hospice placement on d/c. Son's questions answered. He confirms that caring for his dad at home or trying to was not successful. He will be up to visit this sandy. He is in favor and supportive of his dad's wishes and plans for care.
--- NOTE | 2021-10-04 07:39 | NUR ---
SHIFT SUMMARY PT IS A 70 Y/O MALE, ADMITTED FOR HYPONATREMIA AND CURRENTLY COMFORT CARE. PT IS VERY PAINFUL WHEN AWAKE, FREQUENTLY ASKING FOR PAIN MEDS, AND APPEARS ANXIOUS AT TIMES. MEDICATED WITH PRN ROXANOL AND ATIVAN. NO C/O NAUSEA OR SOB. PT SLEPT WELL FOR MOST OF THE NIGHT. THIS AM APPROXIMATELY 0400, PT WAS FOUND DOWN ON THE FLOOR NEXT DOOR IN ROOM 309. PT DIDN'T REMEMBER HOW HE HAD GOTTEN THERE OR WHY HE GOT OUT OF BED INITIALLY, THOUGH LATER REPORTED HE WAS "HUNGRY AND WANTED A SNACK". PT REPORTED HE MAY HAVE HIT HIS HEAD, THOUGH WAS FOUND ON HIS HANDS AND KNEES. INITIAL ASSESSMENT DID NOT REVEAL ANY NEW BRUISING, ABRASIONS OR TENDER SPOTS. PT WAS HELPED BACK TO BED AND BED ALARM SET. POST-FALL VITAL SIGNS STABLE. HOSPITALIST INFORMED OF PT FALL. NO ACUTE CHANGES NOTED SINCE FALL. REPORT GIVEN TO ONCOMING RN.
--- NOTE | 2021-10-04 11:41 | NUR ---
Attempted to visit with pt. He was on the phone for an extended period. Case conferenced with CM, who reports that Taylor from the [facility] came to visit and pt expressed that he wanted to cont seeking treatment. I returned to pt's room, discussed with RN the [facility] visit. Sat at bedside to review with pt and confirm above but he was too sleepy to keep eyes open to talk. He smiled and recognized me and tired but could not talk. He had just recently been medicated for pain. Pt had an episode of confusion during the night. CM to make Contact with Taylor/[facility] again to give her additional information to assist with d/c planning. I will remain available to talk with VA also and will try again to review pt's wishes with him when he is more alert/awake. He appears to be experiencing much better pain control this am than on previous mornings.
--- NOTE | 2021-10-04 13:51 | NUR ---
PT MEDICATED FOR PAIN AND ANXIETY. PT UP TO BEDSIDE COMMODE. TOLERATING FOOD AND FLUIDS. STATES PAIN IS ALL OVER, 10/10.
--- NOTE | 2021-10-04 15:06 | NUR ---
Attempted to visit with pt more awake but he is sleeping soundly again and did not wake to voice or touch. Case conferenced with CM, nursing. Will reassess in am and make supportive visit.
--- NOTE | 2021-10-04 16:34 | NUR ---
SUMMARY- PT A/O TO SELF AND THAT HE'S IN [place]. VASALATES IN ALERTNESS. PERIODS ON SEVERE CONFUSION. TOLERATING FOOD AND FLUID. PAIN CONTROLLED WITH ROXONOL. MOD ANXIETY CONTROLLED WITH ATIVAN. NAPPED FOR A FEW HOURS THIS AFTERNOON. PT TALKED TO PALLIATIVE CARE YOCASTA ORTEZ TODAY AND VOICED HE WOULD LIKE TO RESUME CHEMO TX AND THEREFORE COMFORT CARE MAY NEED TO BE RE-EVALUATED. MIREILLE CALLED DR MARX FOR HIM TO LOOK INTO.
[2021-10-04 17:34] LABS: Creatinine, Blood 0.46 mg/dL (0.60-1.20); Vancomycin, Trough 15.3 ug/mL (5.0-10.0)
--- NOTE | 2021-10-05 04:01 | NUR ---
SHIFT SUMMARY ADMITTED FOR HYPONATREMIA. DNR CODE. COMFORT CARE. POWERGLIDE IN [place]IR[place]. DIAMONDANOL GIVEN THIS SHIFT. HE IS CONFUSED THIS SHIFT. HE IS A&O X2. HE FELL ON A PREVIOUS SHIFT. BED ALARM IS ON. IV ANTIBIOTICS ARE SCHEDULED. HE CALLS OUT FREQUENTLY. HE IS IMPULSIVE.
--- NOTE | 2021-10-05 05:56 | NUR ---
MEDS REFUSED PT REFUSED 6 AM MEDS. PT IS CONFUSED AND ANGRY. HE REQUESTS ONLY PAIN MEDICATION. HE REQUESTS THAT HIS IV BE REMOVED.
--- NOTE | 2021-10-05 08:15 | NUR ---
[facility] Care comfort care visit - Pt sitting up in bed working on breakfast tray. He appears to have a good appetie and did end up finishing breakfast while I was in the room. I assisted with getting his upper and lower partial dentures to finish meal with. Pt talked at length about his brother and family's visit. He became tearful in reminiscing about his niece and pet names he called her. He had a good phone conversation with her and stated they were both crying. He has not seen her for 30 years. Pt is reporting continued pain but reports it is much better than when he came to the hospital. He reports that anxiety and anger/frustration with pain and illness is less "right there". He reports wanting to walk out and leave because pain was so bad he did not know what to do. He said he was catching up on sleep yesterday when I told him he could not stay awake for my visits yesterday. He continues to demonstrate low medical literacy and poor understanding/retention of medical information provided to him. He did not mention wanting treatment to me this morning or yesterday. He said he was waiting to see where he would go, referring to a facility. I told him hospice would see him at the facility and would cont to work on managing his pain. He said, "ok". Pt expressed appreciation for working with him on his pain. Update to pt's RN on my visit later in the morning.
--- NOTE | 2021-10-05 12:12 | NUR ---
LATE ENTRY FOR 3-14 1899- PT ORIENTED TO SELF, PLACE AND FAMILY. AT TIMES MORE CONFUSED AND ANXIOUS. COMPLAINTS OF TOTAL BODY PAIN 8-05/02, MEDICATED APPROX Q2-3 WITH ROXONOL WITH RELEIF OF PAIN AND ATIVAN AIDS IN ALLEVIATING SEVERE ANXIETY. PT GOT UP TO THE BSC, 1 SBA HAD LG BM. TOLERATING FOOD AND FLUIDS. RESP EVEN UNLABORED, ESSENTIALLY CLEAR. ROOM AIR. AWAITING PLACEMENT WITH HOSPICE.
--- NOTE | 2021-10-05 14:36 | NUR ---
PT AWAKE AND ALERT. COOPERATIVE, SET UP FOR BREAKFAST. TOLERATING FOOD AND FLUIDS. MEDICATED FOR C/O PAIN ALL OVER. ASKED FOR COFFEE AND CH PUDDING. USES CALL LIGHT.
--- NOTE | 2021-10-05 18:49 | NUR ---
SUMMARY- PT ALERT AND ORIENTED. GETS UP TO CHAIR AND BSC SBA. USES CALL LIGHT APPROPRIATE. ROXONOL APPROX Q2 WITTH GOOD PAIN RELEIF. TOLERATING FOOD AND FLUIDS. HAD LG BM TODAY. AWAITING PLACEMENT.
--- NOTE | 2021-10-06 04:30 | NUR ---
SHIFT SUMMARY ADMITTED FOR HYPONATREMIA. DNR CODE. CARE MANAGEMENT IS ASSISTING WITH THIS PT. VA PT. HE HAS STG 4 LUNG CANCER W/METS TO BONE. COMFORT CARE. POWERGLIDE IN LUE. PAIN AND ANXIETY MEDICATION GIVEN THIS SHIFT. HE CALLS OUT FREQUENTLY. HE VERBALIZES FREQUENTLY BUT IS UNSURE OF WHAT HE WANTS. A&O X1-2, CONFUSED. HE REQUESTS FREQUENT PAIN MEDICATION. 1 ASSIST TO BSC. HE USES A URINAL.
--- NOTE | 2021-10-06 11:30 | NUR ---
PT APPEARS TO BE SLEEPING DOES NOT AWAKEN EASILY.
--- NOTE | 2021-10-06 11:32 | NUR ---
PT CONTINUES TO SLEEP DOES NOT AWAKEN EASILY
--- NOTE | 2021-10-06 11:33 | NUR ---
PT IS AWAKE. THE PTS SON IS AT THE BEDSIDE. FENTANYL PATCH APPLIED PT IS A/OX4. REPORTED PAIN CONTROLED AT THIS TIME
--- NOTE | 2021-10-06 15:34 | NUR ---
Pt resting in bed and reports 8/10 pain. Offered therapeutic listening and answers questions. Pt reports his pain management is slightly better but would benefit from better management. Spoke with Primary RN Manolo and discussed case. Reviewed case with PC ERICKSON Garrison. PC team will collaborate on potential pain regimen. Palliative Care will remain available.
[2021-10-06 17:19] LABS: Creatinine, Blood 0.55 mg/dL (0.60-1.20); Vancomycin, Trough 16.4 ug/mL (5.0-10.0)
--- NOTE | 2021-10-06 18:18 | NUR ---
PT IS AWAKE. PT'S SO IS AT THE BEDSIDE. PT MEDICATED FOR PAIN AT THIS TIME. PT APPEARS TO BE BREATHING EASILY ON RA. PT HAD LUNCH
--- NOTE | 2021-10-06 18:19 | NUR ---
PT MEDICATED FOR PAIN, ATIVAN 1 MG GIVEN FOR BETTER PAIN CONTROL AND ANXIETY.
--- NOTE | 2021-10-06 18:21 | NUR ---
PT IS AWAKE A/OX4. PT MEDICATED FOR PAIN WITH ATIVAN FOR BETTER PAIN CONTROL. PT SON AT THE BEDSIDE. PT IS EATING DINNER APPEARS TO BE BREATHING EASILY ON RA. CALL LIGHT IN REACH
--- NOTE | 2021-10-07 00:07 | NUR ---
DR MOODY notified of PT co uncontrolled metastatic lung cancer bone pain despite full use of sl roxonol 20 mg every 1 hrs and 100 mcg fentanyl patch. PT medicated with 1 mg oral ativan for anxiety and repeated about 1 hr later due to continued anxiety. 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 [employer] with PTSD. DR Gonsalez gives 1 x order for fentanyl 50 mcg to assess effect. The 100 mcg was changed eralier today.
--- NOTE | 2021-10-07 05:51 | NUR ---
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 on comfort care & despite 100 mcg fentanyl patch he has acute pain & has been having anxiety so recieved 1 to 2 mg oral ativan with helpful effect. More alert less anxiety with the 2 mg . has 20 mg sl morphine with only mild helpful effect on metastatic cancer pain. 1 x dpse of 50 mcg fentanyl with improved pain control. PT has good appetite, good fluid intake. uses urinal. Support for PT on comfort care.
--- NOTE | 2021-10-07 11:48 | NUR ---
PT APPEARS TO BE SLEEPING DIFFICULT TO AROUSE THIS AM OPENS EYES THEN FALLS ASLEEP
--- NOTE | 2021-10-07 11:50 | NUR ---
PT CONTINUES TO SLEEP DOES NOT AWAKEN FOR BREAKFAST, APPEARS TO BE COMFORTABLE
--- NOTE | 2021-10-07 11:51 | NUR ---
PT AWAKE AT THIS TIME, SON AT THE BEDSIDE AM MEDS GIVEN. MORPHINE GIVEN PER PT REQUEST.
--- NOTE | 2021-10-07 11:54 | NUR ---
PT CONTINUES TO HAVE PAIN GAVE MORPHINE AND ATIVAN PER HIS REQUEST
--- NOTE | 2021-10-07 13:39 | NUR ---
Spoke with Dr Bruce earlier this AM and discussed case. Spoke with Primary RN Manolo and discussed case. Reviewed comfort medications and discussed offering lower dose of Ativan and alternating with Roxanol. Anxiety appears to be contributing towards Pt's pain. Manolo agreeable to plan and will pass on to cage shift manager. Pt resting in bed and appears lethargic and tired. Discussed plan with Pt in agreement. Ended visit to allow Pt to rest. Palliative Care will remain available.
--- NOTE | 2021-10-07 18:26 | NUR ---
SHIFT SUMMARY- ASSUMED CARE OF THIS PT AT 1400. MEDICATED FOR PAIN AND ANXIETY NEEDED. HE SLEPT FOR APPROX AN HOUR THIS SHIFT. HE HAD A VISITIOR THIS AFTERNOON. HE IS USING THE URINAL AT BEDSIDE. HIS BED IS IN THE LOW POSITON AND CALL LIGHT IS WITIN REACH.
--- NOTE | 2021-10-07 22:13 | NUR ---
Received patient AAOX3, in no acute distress. He stated that he has pain that was treated per EMAR. No other concern voices. We are monitoring patient.
--- NOTE | 2021-10-08 00:16 | NUR ---
Patient had been medicated for pain, per patient request.
--- NOTE | 2021-10-08 04:32 | NUR ---
Patient continuously complaining of pain. Medication given upon request. No acute changes. We will continue to monitor patient.
--- NOTE | 2021-10-08 11:21 | NUR ---
Received call from Primary RN Manolo reporting Pt would benefit from Palliative Care visit. Pt waxing and wayning on goals of care. Pt resting in bed upon arrival. Offered therapeutic listening as Pt expresses fears and uncertainties. Validated concerns and continued therapeutic listening. Encouraged Pt to explore fears and discussed aligning goals with values. After discussion Pt reports wanting to continue with comfort care and DNR status. Palliative Care will remain available.
--- NOTE | 2021-10-08 14:41 | NUR ---
PT IS AWAKE THIS AM. MEDICATED FOR PAIN.
--- NOTE | 2021-10-08 14:43 | NUR ---
PT WANTING TO SLEEP WARM BLANKET GIVEN DECLINED PAIN MEDICATION AT THIS TIME
--- NOTE | 2021-10-08 14:45 | NUR ---
PT REPORTS NOT FEELING WELL IN PAIN AND ANXIOUS GAVE MORPHINE AND ATIVAN. THE PT REPORTED HAVING ANXIETY ABOUT DIEING STATED THAT HE WAS NOT READY FOR THAT AND WANTED TO CHANGE BACK TO FULL CODE. PALLIATATIVE CARE RN BEN WAS CONSULTED AND CAME AND SPOKE WITH THE PT REASURING THE PT AND GIVING HIM A BETTER UNDERSTANDING OF HIS DIAGNOSIS AND HOW HOSPICE CARE WORKED FOR HIS NEEDS. THE PT MADE THE DECISION TO CONTINUE WITH HOSPICE CARE AT THIS TIME
--- NOTE | 2021-10-08 14:51 | NUR ---
PT UP TO THE CHAIR PER HIS REQUEST. DENIED NEED FOR PAIN MEDICATION AT THIS TIME
--- NOTE | 2021-10-08 14:53 | NUR ---
PTS SON IS AT THE BEDSIDE. PT MEDICATED FOR PAIN PER HIS REQUEST. WILL CONTINUE TO MONITOR AND ASSESS FOR CHANGES
--- NOTE | 2021-10-08 17:15 | NUR ---
PT REPORTS NOT BEING COMFORTABLE. MEDICATED THE PT FOR PAIN
--- NOTE | 2021-10-08 17:16 | NUR ---
MEDICATED THE PT FOR PAIN PER HIS REQUEST. CALL LIGHT IN REACH WILL CONTINUE TO MONITOR AND ASSESS FOR CHANGES
--- NOTE | 2021-10-08 18:33 | NUR ---
PT UP IN THE CHAIR FOR DINNER. APPEARS TO BE BREATHING EASILY. REPORTS FEELING COMFORTABLE IN THE CHAIR AT THIS TIME. HAD A GOOD APPETITE. CALL LIGHT IN REACH
--- NOTE | 2021-10-08 22:36 | NUR ---
Received patient alert, requesting pain medication. Med given per EMAR. We will monitor.
--- NOTE | 2021-10-09 00:33 | NUR ---
Patient resting confortably, No acute distress noted. We'll monitor.
--- NOTE | 2021-10-09 06:30 | NUR ---
Patient laying in bed confortably. No acute distress noted. We will continue to provides confort care until report given to the oncoming nurse.
--- NOTE | 2021-10-09 18:08 | NUR ---
SHIFT SUMMARY: ON COMFORT CARE. PAIN POORLY CONTROLLED O/N; STATES HE IS NOW COMFORTABLE BUT IS REQUIRING ROXANOL 20 MG ABOUT Q2 HOURS. ALSO GIVING ATIVAN FOR ANXIETY WITH GOOD EFFECT. USING URINAL INDEPENDENTLY, BSC WITH SBA. HAD VISIT WITH HIS SON TODAY.
--- NOTE | 2021-10-10 06:46 | NUR ---
SHIFT SUMMARY - SEE EMAR FOR PAIN MEDICATION ADMINISTRATION. PT'S PAIN LEVEL HAS BEEN HIS MAIN COMPLAINT THROUGHOUT THE NIGHT. PT HAS SLEPT FOR SHORT PERIODS OF TIME. PT REQUESTING SNACKS OFTEN THROUGHOUT THE NIGHT - PROVIDED PER REQUEST. PT WAS ABLE TO DANGLE AT THE BEDSIDE SEVERAL TIMES FOR URINATION INTO URINAL. PER REPORT RECEIVED - PLAN IS FOR RH ON MONDAY WITH HOSPICE. FLUIDS AT BEDSIDE. CALL LIGHT WITHIN REACH. BED IN LOW POSITION. FLUIDS AT BEDSIDE.
--- NOTE | 2021-10-10 07:13 | NUR ---
PT TURNS SELF IN BED, PT IS ABLE TO DANGLE INDEPENDENTLY - NO REPOSITIONING REQUIRED.
--- NOTE | 2021-10-10 18:17 | NUR ---
SHIFT SUMMARY: ON COMFORT CARE. IS HAVING A/V HALLUCINATIONS, CAN BE DIFFICULT TO REDIRECT. HAS BEEN AWAKE ALL DAY DESPITE RECEIVING SEVERAL DOSES OF MORPHINE FOR PAIN. APPETITE IMPROVED AFTER ADMINISTRATION OF ZOFRAN, IS EATING ~80 OFF ALL MEALS. IS TRANSFERRING FROM BED TO CHAIR WITH ONE PERSON ASSIST. HAD VISIT FROM HIS SON TODAY. SEROQUEL HAS BEEN ORDERED FOR AGITATION.
--- NOTE | 2021-10-11 02:49 | NUR ---
LOCAL SALES ASSOCIATE SUMMARY PATIENT HAD A FAIR SHIFT. HE WAS ANXIOUS AND RESTLESS AND KEEPS GETTING OUT OF BED. HE WAS GIVEN ANXIETY AND PAIN MED NEEDED. HE WAS KEPT COMFORTABLE. NO OTHER COMPLAINTS LODGED. WILL CONTINUE TO MONITOR HIM.
--- NOTE | 2021-10-11 16:30 | NUR ---
Attempted visit - pt on phone. Case conferenced with pt's RN, CM and [place] [facility] team when they came to visit. They met with pt again and will review with admissions team in am. EMR reviewed. Pt started on Seroquel and this seemed to help him get some sleep during the night and today. Anxiety and pain continue to be reported and medicated for per eMAR. Will assess in am again for s/s management. VA to let CM know answer re: transfer to [place] hospice unit tomorrow.
--- NOTE | 2021-10-11 17:08 | NUR ---
PT AOX3 AND COOPERATIVE OF CARE. PT WAS SLEEPING MOST OF THE MORNING AND REFUSING MEDICATION. PT LATER WOKE UP AND HAS BEEN KEEP COMFORTABLE TREATING PAIN PER EMAR AND REPOSITIONING WITH PILLOWS. PT IS RESTING AT THIS TIME AND TALKING ON THE PHONE WILL CONTINUE TO MONITOR. CALL LIGHT WITHIN REACH.
--- NOTE | 2021-10-11 19:28 | NUR ---
ALERT AND ORIENTED. DENIED CURRENT PAIN, BUT STATED IT "COMES AND GOES". ALSO VOICED THAT ITS REAL BAD IN THE HVAC INSTRUCTOR HOURS. WILL CHECK BACK AND ADDRESS PAIN. SEE MAR FOR DETAILS. CALL LIGHT IN REACH
--- NOTE | 2021-10-11 21:47 | NUR ---
INITALLY DENIED PAIN AT SHIFT COMMENCE, STATED IT "COMES AND GOES", BUT SOON AFTER, VOICED PAIN 9:10 AND MEDS ADMINISTERED - SEE MAR FOR DETAILS. CALL LIGHT IN REACH
--- NOTE | 2021-10-11 23:50 | NUR ---
AWAKE AT INTERVALS. SEE MAR FOR DETAILS OF PAIN MEDS ADMINISTERED. CALL LIGHT IN REACH
--- NOTE | 2021-10-11 23:52 | NUR ---
ENCOURAGED TO USE CALL LIGHT IF NEEDING PAIN MEDS. CALL LIGHT IN REACH
--- NOTE | 2021-10-11 23:53 | NUR ---
CALL LIGHT IN REACH
--- NOTE | 2021-10-12 03:47 | NUR ---
CONCRETE SMOOTHER SUMMARY COMFORT CARE CONTINUES. HAS RECEIVED ANALGESICS ABOUT EVERY 2 HRS FOR SEVERE PAIN - SEE MAR FOR DETAILS. ALERT AND ORIENTED. WEAK BUT COOPERATIVE THROUGH SHIFT. HOB ELEVATED FOR COMFORT IN BREATHING. CALL LIGHT IN REACH. CURRENTLY RESTING QUIETLY
--- NOTE | 2021-10-12 04:39 | NUR ---
RESTING QUIETLY AT INTERVALS. CALL LIGHT IN REACH
--- NOTE | 2021-10-12 04:40 | NUR ---
SEE MAR FOR DETAILS RE PAIN MEDS. CALL LIGHT IN REACH
--- NOTE | 2021-10-12 04:41 | NUR ---
RESTING QUIETLY. CALL LIGHT IN REACH
--- NOTE | 2021-10-12 06:30 | NUR ---
AWAKE. VOICED PAIN MORE SIGNIFICANT. MEDICATED - SEE MAR FOR DETAILS. CALL LIGHT IN REACH
--- NOTE | 2021-10-12 09:50 | NUR ---
Comfort care visit Pt talking with his RN upon my arrival. Sitting up in bed. Pt appears gaunt and to have progressed in dying process significantly since I last saw him one week ago. He is reporting pain during am assessment and RN left to obtain Roxanol for use per eMAR. Pt invited me to sit down. He asked where and when he was leaving. He expressed that he wanted to be able to "go shopping for himself" or be able to visit his house. Explained necessary quarantine at any facility that may accept him for care. Pt struggling with the hard facts of his current status. I asked if he felt well enough to go shopping and he said, "No". Time spent just sitting quietly with him and arranging items to be within easy reach, beverage, call light, urinal. Pt's mentation appears clouded but he recognized me and smiled when I entered the room. He also verbalized appreciation for the visit. Pt appears more comfortable with fewer nonverbal indicators of pain and agitation than on previous visits.
--- NOTE | 2021-10-12 10:26 | NUR ---
PT AWAKE SITTING UP EATING BREAKFAST DR. FIELD IN TO SEE THE PT. THE PT DECLINED PAIN MEDICATION AT THIS TIME
--- NOTE | 2021-10-12 10:28 | NUR ---
MEDICATED THE PT FOR PAIN. PT LAYED DOWN TO SLEEP, HOWEVER, AWOKE VERY SHORTLY AFTER CONFUSED AND YELLING OUT. PT REASURED AND MADE COMFORTABLE
--- NOTE | 2021-10-12 11:11 | NUR ---
Reviewed CM note re: acceptance from [place] hospice unit for transfer. Dr Rodriguez's office ([place]) updated on dc plan for pt.
[2021-10-12 12:44] LABS: Influenza A, PCR NEGATIVE (NEGATIVE); Influenza B, PCR NEGATIVE (NEGATIVE); Resp Syncytial Virus, PCR NEGATIVE (NEGATIVE); SARS-Cov-2 (COVID-19) PCR, MMC NEGATIVE (NEGATIVE)
[2021-10-12] MEDS ORDERED: DECADRON4 M1 PO (13:49)
[2021-10-12] MEDS ORDERED: ATROPINE SULFATE2 M1 SL (13:49)
[2021-10-12] MEDS ORDERED: DURAGESIC1 EAC1 TOP (13:49)
[2021-10-12] MEDS ORDERED: DOCU100 PO (13:50)
[2021-10-12] MEDS ORDERED: Ativan1 MG PO (13:50)
[2021-10-12] MEDS ORDERED: Seroquel Xr50 MG PO (13:51)
[2021-10-12] MEDS ORDERED: NICO21TP TOP (13:51)
[2021-10-12] MEDS ORDERED: MIRALAX17 GM PO (13:51)
[2021-10-12] MEDS ORDERED: TRANSDERM-SCOP1 EAC9 TD (13:52)
[2021-10-12] MEDS ORDERED: MORP20L SL (13:52)
[2021-10-12] MEDS ORDERED: SENN187 PO (13:52)
--- NOTE | 2021-10-12 15:11 | NUR ---
PT DISCHARGED TO THE [facility]. REPORT CALLED TO JHON ALMENDAREZ AT THE [facility]. THE PT WAS MEDICATED FOR PAIN PRIOR TO DC. THE PT WAS TRANSFERED VIA GURNEY ACCOMPANIED BY THE [facility]. PT WAS AWAKE AND ALERT AT THE TIME OF DC
--- NOTE | 2021-10-12 15:13 | NUR ---
PT UP IN THE CHAIR FOR LUNCH . MEDICATED FOR PAIN
--- NOTE | 2021-10-12 15:14 | NUR ---
PT MEDICATED FOR PAIN TO MAKE READY FOR TRANSPORT TO [place]
== END 2021-10-12 14:23 | disposition hospice, inpatient (51) | DRG 643 ==
LOC: ER 13:56 → MEDS 19:30
PROVIDERS: Internal Medicine; Pharmacist; Student in an Organized Health Care Education/Training Program; ADMIT Internal Medicine
PROC: 0W9930Z Drainage of Right Pleural Cavity with Drainage Device, Percutaneous Approach (ICD-10-PCS; principal; 2021-09-27)
PROC: 3E03305 Introduction of Other Antineoplastic into Peripheral Vein, Percutaneous Approach (ICD-10-PCS; 2021-09-27)
DX: E22.2 Syndrome of inappropriate secretion of antidiuretic hormone (principal); G93.41 Metabolic encephalopathy; C34.90 Malignant neoplasm of unspecified part of unspecified bronchus or lung; C79.51 Secondary malignant neoplasm of bone; J90 Pleural effusion, not elsewhere classified; E44.0 Moderate protein-calorie malnutrition; Z20.822 Contact with and (suspected) exposure to COVID-19; Z51.5 Encounter for palliative care; Z66 Do not resuscitate; E88.09 Other disorders of plasma-protein metabolism, not elsewhere classified; J44.9 Chronic obstructive pulmonary disease, unspecified; F10.20 Alcohol dependence, uncomplicated; E66.9 Obesity, unspecified; R11.2 Nausea with vomiting, unspecified; E86.0 Dehydration; D63.0 Anemia in neoplastic disease; F41.8 Other specified anxiety disorders; I10 Essential (primary) hypertension; F43.10 Post-traumatic stress disorder, unspecified; Z68.24 Body mass index [BMI] 24.0-24.9, adult; Z88.6 Allergy status to analgesic agent; Z88.8 Allergy status to other drugs, medicaments and biological substances; Z92.3 Personal history of irradiation; Z91.030 Bee allergy status; Z79.899 Other long term (current) drug therapy
CPT/HCPCS: 0241U; 32555; 36415; 71045; 71046; 71260; 74177; 80048; 80053; 80202; 81001; 82550; 82565; 82728; 82945; 83540; 83550; 83735; 83986; 84100; 84157; 84443; 84550; 85025; 85027; 85610; 87070; 87086; 87205; 88108; 88305; 89051; 93005; 93010; 96365; 96375; 97110; 97162; 97530; 99285-25; A9270; C1751; J0692; J1885; J2405; J2550; J3010; J3370; J7030; J7040; J7050; P9046; Q9967